=== PATIENT | male | born 1960 | race Caucasian/White ===

== ENCOUNTER 2016-12-09 15:50 | Emergency (ER) | payer OTHER ==
--- NOTE | 2016-12-09 16:58 | ED NURSING NOTES ---
Clinical Report - Nurses [facility] [address] [place] [address] 12/09/2016 15:51 Patient: CARLA MARTINEZ TRIAGE Acuity: LEVEL 3. Chief Complaint: HEADACHE. Alert. No acute distress. SEPSIS SCREEN: Sepsis Screen. Negative (no infection suspected/documented). PAYAL COMA SCORE: [place] Coma Scale: 15- eyes open spontaneously (4); best verbal response- oriented x 4 (5); best motor response- obeys commands (6). --15:49 Marianne Carroll R.N. 15:44 12/09/16. BP: 134/89. HR: 80. RR: 16. O2 saturation: 98%. Temp: 97.8 F (oral). Pain level now: 0/10. --15:49 Marianne Carroll R.N. Weight: 95.2 kg stated. Height/Length: 73 inches Per Patient. BMI: 27.7. --15:47 Marianne Carroll R.N. Medications None. --15:46 Marianne Carroll R.N. Medication/allergy information source: the patient. --15:49 Marianne Carroll R.N. Allergies Xanax. --15:47 Marianne Carroll R.N. [place]. --15:47 Marianne Carroll R.N. History Arrived by EMS. Historian: patient. Unaccompanied. Primary physician (Norma Diamond). This started 1 weeks ago. 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 SOCIAL HX: Never smoker. History of occasional drug use: marijuana. No alcohol use. FALL RISK ASSESSMENT: Fall risk assessment completed. No fall risk identified. NUTRITIONAL RISK ASSESSMENT: The nutritional risk assessment revealed no deficiencies. FUNCTIONAL ASSESSMENT: Functional assessment: no impairments noted. LEARNING NEEDS ASSESSMENT: The learning needs assessment revealed no barriers. SKIN INTEGRITY ASSESSMENT: Skin integrity risk assessment completed. No skin integrity risk identified. --15:49 Marianne Carroll R.N. PROBLEMS: Depression. Bipolar Disorder. Anxiety Reaction. --15:47 Marianne Carroll R.N. Assessment GENERAL / NEURO / PSYCH: Alert. Oriented X 4. Appears in no acute distress. Patient appears calm and cooperative. RESPIRATORY: Respirations not labored. CVS: Capillary refill less than 2 seconds. GI / : Abdomen soft and nontender. SKIN: Mucous membranes are pink. Skin is warm and dry. --15:49 Marianne Carroll R.N. Interventions ID band on patient. To treatment room. --15:49 Marianne Carroll R.N. PHYSICAL ASSESSMENT 15:49 12/09/16. Ambulatory to room. GENERAL / NEURO / PSYCH: Alert. Oriented X 4. Appears in no acute distress. Speech within normal limits. HEENT: No facial asymmetry noted. Pupils equal, round and reactive to light. RESPIRATORY: Respirations not labored. CVS: Capillary refill less than 2 seconds. GI / : Abdomen soft and nontender. SKIN: Skin is warm and dry. --15:49 Marianne Carroll R.N. NURSING PROGRESS NOTES 15:50 12/09/16. Patient gowned. Two patient identifiers checked. Call light placed in reach. Side rails up x 1. Bed placed in lowest position. Brakes of bed on. Patient ready for evaluation- chart flagged. --15:50 Marianne Carroll R.N. DISPOSITION / DISCHARGE 17:07 12/09/16. Departure time: 17:05 Dec 09 2016. Condition at departure: improved and stable. No learning barriers present. Discharge instructions provided and reviewed with the patient. Reviewed medication(s) side effects and precautions information. Prescription(s) given to the patient. Patient verbalized understanding. Written instructions provided in Syriac. The patient was discharged by the physician. He was discharged home. He left the Emergency Department ambulatory and via taxi. --17:07 Marianne Carroll R.N. Locked/Released at 12/09/2016 17:08 by Marianne Carroll R.N.
--- NOTE | 2016-12-09 16:58 | ED NURSING NOTES ---
Clinical Report - Nurses [facility] [address] [place] [address] 12/09/2016 15:51 Patient: CARLA MARTINEZ TRIAGE Acuity: LEVEL 3. Chief Complaint: HEADACHE. Alert. No acute distress. SEPSIS SCREEN: Sepsis Screen. Negative (no infection suspected/documented). PAYAL COMA SCORE: [place] Coma Scale: 15- eyes open spontaneously (4); best verbal response- oriented x 4 (5); best motor response- obeys commands (6). --15:49 Marianne Carroll R.N. 15:44 12/09/16. BP: 134/89. HR: 80. RR: 16. O2 saturation: 98%. Temp: 97.8 F (oral). Pain level now: 0/10. --15:49 Marianne Carroll R.N. Weight: 95.2 kg stated. Height/Length: 73 inches Per Patient. BMI: 27.7. --15:47 Marianne Carroll R.N. Medications None. --15:46 Marianne Carroll R.N. Medication/allergy information source: the patient. --15:49 Marianne Carroll R.N. Allergies Xanax. --15:47 Marianne Carroll R.N. [place]. --15:47 Marianne Carroll R.N. History Arrived by EMS. Historian: patient. Unaccompanied. Primary physician (Norma Diamond). This started 1 weeks ago. 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 SOCIAL HX: Never smoker. History of occasional drug use: marijuana. No alcohol use. FALL RISK ASSESSMENT: Fall risk assessment completed. No fall risk identified. NUTRITIONAL RISK ASSESSMENT: The nutritional risk assessment revealed no deficiencies. FUNCTIONAL ASSESSMENT: Functional assessment: no impairments noted. LEARNING NEEDS ASSESSMENT: The learning needs assessment revealed no barriers. SKIN INTEGRITY ASSESSMENT: Skin integrity risk assessment completed. No skin integrity risk identified. --15:49 Marianne Carroll R.N. PROBLEMS: Depression. Bipolar Disorder. Anxiety Reaction. --15:47 Marianne Carroll R.N. Assessment GENERAL / NEURO / PSYCH: Alert. Oriented X 4. Appears in no acute distress. Patient appears calm and cooperative. RESPIRATORY: Respirations not labored. CVS: Capillary refill less than 2 seconds. GI / : Abdomen soft and nontender. SKIN: Mucous membranes are pink. Skin is warm and dry. --15:49 Marianne Carroll R.N. Interventions ID band on patient. To treatment room. --15:49 Marianne Carroll R.N. PHYSICAL ASSESSMENT 15:49 12/09/16. Ambulatory to room. GENERAL / NEURO / PSYCH: Alert. Oriented X 4. Appears in no acute distress. Speech within normal limits. HEENT: No facial asymmetry noted. Pupils equal, round and reactive to light. RESPIRATORY: Respirations not labored. CVS: Capillary refill less than 2 seconds. GI / : Abdomen soft and nontender. SKIN: Skin is warm and dry. --15:49 Marianne Carroll R.N. NURSING PROGRESS NOTES 15:50 12/09/16. Patient gowned. Two patient identifiers checked. Call light placed in reach. Side rails up x 1. Bed placed in lowest position. Brakes of bed on. Patient ready for evaluation- chart flagged. --15:50 Marianne Carroll R.N. DISPOSITION / DISCHARGE 17:07 12/09/16. Departure time: 17:05 Dec 09 2016. Condition at departure: improved and stable. No learning barriers present. Discharge instructions provided and reviewed with the patient. Reviewed medication(s) side effects and precautions information. Prescription(s) given to the patient. Patient verbalized understanding. Written instructions provided in [place]. The patient was discharged by the physician. He was discharged home. He left the Emergency Department ambulatory and via taxi. --17:07 Marianne Carroll R.N. Locked/Released at 12/09/2016 17:08 by Marianne Carroll R.N.
--- NOTE | 2016-12-09 16:58 | ED ORDER SUMMARY ---
..... Patient: CARLA MARTINEZ OrderSheet [facility] VisitID: [id number] [address] [place] [address] 55y, M Registration Date/Time: 12/09/2016 ORDER SHEET Weight: 95.2 kg (stated) Allergies: Xanax, [place] GENERAL ORDERS: ESR Urgent (16:05 12/09/2016 Valeriano PIERRE) (Ack 16:[address] [facility]) (16:47 Nir Markham) MEDICATION ORDERS: IV FLUIDS: ORDER SHEET NOTES: [Electronically signed by Marianne Carroll R.N. (17:08 12/09/2016)] [Electronically signed by Arias Kaye DO (14:32 12/10/2016)] [Electronically locked/signed by Marianne Carroll R.N. (17:08 12/09/2016)]
--- NOTE | 2016-12-09 16:58 | ED ORDER SUMMARY ---
..... Patient: CARLA MARTINEZ OrderSheet [facility] VisitID: [id number] [address] [place] [address] 55y, M Registration Date/Time: 12/09/2016 ORDER SHEET Weight: 95.2 kg (stated) Allergies: Xanax, [place] GENERAL ORDERS: ESR Urgent (16:05 12/09/2016 Valeriano PIERRE) (Ack 16:06 [facility]) (16:47 Nir Markham) MEDICATION ORDERS: IV FLUIDS: ORDER SHEET NOTES: [Electronically signed by Marianne Carroll R.N. (17:08 12/09/2016)] [Electronically signed by Arias Kaye DO (14:32 12/10/2016)] [Electronically locked/signed by Marianne Carroll R.N. (17:08 12/09/2016)]
--- NOTE | 2016-12-09 16:58 | ED CLINICAL REPORT ---
Clinical Report - Physicians/Mid Levels [facility] [address] [place] [address] 12/09/2016 15:51 Patient: CARLA MARTINEZ Time Seen: 15:57. Arrived- By ambulance. Historian- patient and EMS personnel. HISTORY OF PRESENT ILLNESS Chief Complaint: FACIAL PAIN. This started about 2 weeks ago and is now gone. It was abrupt in onset and has been intermittent. Onset during light activity. It is described as "pain" and sharp. Located in the right temporal region and left mandibular region. No neck pain. At its maximum, severity described as moderate. When seen in the E.D., it was gone. Modifying factors: relieved by nothing. Not worsened by anything. No preceding symptoms, blurred vision, photophobia, associated nausea or numbness. No weakness or vomiting. Similar symptoms previously: Recent medical care: The patient was seen recently in a clinic. Seen for other problems. ( saw dental walk-in clinic about 2 weeks ago for right lower dental pain - has mild pain in this area persisting). REVIEW OF SYSTEMS No fever, sinus pressure, ear pain, sore throat or chest pain. No difficulty breathing, cough, abdominal pain, diarrhea or pain with urination. No skin rash, enlarged lymph nodes or back pain. All systems otherwise negative, except as recorded above. PAST HISTORY Primary physician (Norma Diamond). Anxiety. Bipolar disorder. Depression. Medications: None. Allergies: [place]. Xanax. SOCIAL HISTORY Never smoker. History of drug use: marijuana. No alcohol use. He is homeless. ADDITIONAL NOTES The nursing notes have been reviewed. PHYSICAL EXAM Vital Signs: 12/09/2016 15:44 BP: 134/89. HR: 80. RR: 16. O2 saturation: 98%. Temp: 97.8 F. Pain level now: 0/10. Appearance: Alert. Anxious. Head: Temporal artery tenderness. No tenderness to palpation/percussion over the sinuses. Eyes: Pupils equal, round and reactive to light. Eyes normal inspection. No photophobia or shallow angle. ENT: Airway intact. Pharynx normal and normal. Moist mucous membranes. Uvula midline. Voice normal. No nasal discharge, pharyngeal erythema or tonsillar exudate. no dental tenderness; no gingival swelling or fluctuance. Neck: Normal inspection. Neck supple. No meningeal signs or carotid bruit. CVS: Normal heart rate and rhythm. Heart sounds normal. Pulses normal. Respiratory: No respiratory distress. Breath sounds normal. Abdomen: Soft and nontender. Back: Normal inspection. Skin: Skin warm and dry. Normal skin color. No rash. Normal skin turgor. Extremities: Extremities exhibit normal ROM. No lower extremity edema. Neuro: Oriented X 3. Alert. Mood/affect normal. Speech normal. Cranial nerves normal (as tested). No cerebellar findings. No motor deficit. No sensory deficit. Reflexes normal. Reflex exam: right biceps 2+, left biceps 2+, right patellar 2+, left patellar 2+, right Achilles 2+ and left Achilles 2+. LABS, X-RAYS, AND EKG Laboratory Tests: ESR: (MAGAN: 12/09/2016 16:15) ( MsgRcvd 12/09/2016 16:45) Final results Test Result Flag Units (Reference) SED RATE WESTERGREN 3 mm/hr (0-20) . Pulse Oximetry: 12/09/2016 15:44 O2 saturation: 98%. (FIO2 - room air). Interpretation: normal. PROGRESS AND PROCEDURES Course of Care: Episodes of fleeting (seconds), sharp ("electric") right temporal area pain and lower right dental pain. Not c/w meningitis or SAH / intracerebral hemorrhage. CT or LP not clinically indicated. Pt will need close out pt follow up. Pt with underlying diagnosis of chronic anxiety d/o and bipolar d/o. ESR low normal - not c/w giant cell arteritis. Consider trigeminal neuralgia. Patient/family counseled. Old ED records reviewed. Disposition: Discharged. Condition: stable and improved. CLINICAL IMPRESSION Acute nontraumatic pain in the face. Chronic substance abuse- marijuana with anxiety. Possible trigeminal neuralgia. Doubt temporal arteritis Clinical picture does not suggest meningitis, encephalitis or nontraumatic subarachnoid hemorrhagee. INSTRUCTIONS No alcohol until released. Warnings: Further evaluation is necessary in order to conduct further tests. It is very important to follow up with a physician. GENERAL WARNINGS: Return or contact your physician immediately if your condition worsens or changes unexpectedly, if not improving as expected, or if other problems arise. Prescription Medications: Ibuprofen 600mg tablets: take 1 tablet orally every 8 hours as needed for pain. Dispense thirty (30). No refills. OTC Medications: Acetaminophen (available over the counter): take according to label instructions. Follow-up: Follow up with your doctor Lobo in about two days. (Electronically signed by Arias Kaye DO 12/10/2016 14:32)
--- NOTE | 2016-12-10 14:33 | ED MED RECONCILIATION SUMMARY ---
Patient: CARLA MARTINEZ Medication Reconciliation Report [facility] VisitID: [id number] [address] [place] [address] 55y, M Registration Date/Time: 12/09/2016 Weight: 95.2 kg Height/Length: 73 in. BMI: 27.7 ALLERGIES: [place], Xanax The patient's Home Medications are listed below: NONE. The source(s) of the original Home Medication information: patient The following Medications were given to the patient in the Emergency Department: None. The following Medications were prescribed to the patient: Acetaminophen (available over the counter): take according to label instructions. -- Arias Kaye DO Ibuprofen 600mg tablets: take 1 tablet orally every 8 hours as needed for pain. Dispense thirty (30). No refills. -- Arias Kaye DO
--- NOTE | 2016-12-10 14:33 | ED MAR SUMMARY ---
..... Medication Administration Record [facility] [address] [place], [place] [id number] Patient: CARLA MARTINEZ Visit ID: [id number] 55y, M Weight: 95.2 kg Height/Length: 73 in BMI: 27.7 ALLERGIES: [place], Xanax
--- NOTE | 2016-12-10 14:33 | ED DISCHARGE INSTRUCTIONS ---
Patient: CARLA MARTINEZ General Instructions [facility] VisitID: [id number] [place] [address] 55y, M Registration Date/Time: 12/09/2016 Acute nontraumatic pain in the face. Chronic substance abuse- marijuana with anxiety. INSTRUCTIONS No alcohol until released. Warnings: Further evaluation is necessary in order to conduct further tests. It is very important to follow up with a physician. GENERAL WARNINGS: Return or contact your physician immediately if your condition worsens or changes unexpectedly, if not improving as expected, or if other problems arise. Prescription Medications: Ibuprofen 600mg tablets: take 1 tablet orally every 8 hours as needed for pain. Dispense thirty (30). No refills. OTC Medications: Acetaminophen (available over the counter): take according to label instructions. Follow-up: Follow up with your doctor [place] in about two days. ADDITIONAL INFORMATION Pain, Uncertain Cause [Acute] Pain is the bodys way of calling attention to a problem. Pain can be caused by many conditions - some minor, some serious. In your case, we were not able to find the exact cause for your pain. However, at this time there is no sign of any serious or life-threatening illness causing your pain. Sometimes more tests will be needed to determine the cause. Other times, just allowing more time to pass will either make it clear what the problem is, or the pain will go away by itself. Home Care: You may use acetaminophen (Tylenol) or ibuprofen (Motrin, Advil) to control pain, unless another medicine was prescribed. [NOTE: If you have chronic liver or kidney disease or ever had a stomach ulcer or GI bleeding, talk with your doctor before using these medicines.] Follow Up with your doctor or as advised by our staff. Get Prompt Medical Attention if any of the following occur: Changes in the pattern of your pain Appearance of new symptoms Fever of 100.4F (38C) or higher, or as directed by your healthcare provider Temporal Arteritis You have temporal arteritis (also called Giant Cell Arteritis. This is an inflammation of the temporal artery, which sends blood to your eye. This artery is located in the scalp area just above each ear. When the arteries are inflamed, the vessel narrows and blood flow slows down. A clot may also form inside the artery, stopping all blood flow. Reduced or blocked blood flow in this artery can cause blindness in the affected side. In rare cases stroke may occur. The cause of temporal arteritis is not known. Symptoms of temporal arteritis include headache, tenderness of the temples, jaw pain when chewing, muscle aching, and fatigue. Steroids (prednisone) are used to treat this condition. They reduce inflammation in the arteries. When treatment starts, most people begin to feel better in a few days. Most people do recover from this condition, but it may require continued treatment for 1 or 2 years. intermediate steroid treatment can cause various important side effects. These include osteoporosis, high blood pressure and diabetes. Talk to your doctor about this and ways to minimize these. Home Care Take your medicine as directed by your doctor. The following suggestions will help reduce side effects from long-term steroid use. Nutrition: Eat plenty of fresh fruits, vegetables, and whole grains. Focus on lean sources of protein. Limit the use of salt, sugar, and alcohol. Be sure to get enough calcium and vitamin D from low-fat dairy foods. If you are not able to eat dairy, you can use lactose-free dairy products or find other food sources that contain calcium such as kale, broccoli, white beans, green beans, Lopez beans, salmon, soybeans, tofu, or fortified juices. Or you can take daily calcium supplements. Ask your doctor how much calcium you should take each day. Exercise: Get regular aerobic exercise, up to 30 minutes on most days. Exercise can help prevent bone loss, heart disease, and diabetes. It also relieves stress and can improve your mood and your overall quality of life. If you dont already exercise regularly, ask your doctor for help setting up a program. Follow Up with your doctor or as advised by our staff. For more information, contact: National [place] of Arthritisand Musculoskeletal and Skin Diseases www.niams.nih.gov The Arthritis Foundation. www.arthritis.org Get Prompt Medical AttentionIf Any Of The Following Occur: Your symptoms get worse Numbness or weakness of the face, one arm, or one leg Slurred speech, confusion, trouble speaking or walking Severe headache Fainting spell, dizziness or seizure Chest, arm, neck, or upper back pain Sudden loss or change in vision Marijuana Abuse Marijuana is the most widely used illegal drug in the [place]. It is called by various names such as pot, weed, blunts, grass, reefer, ganja, hash, hashish. It is usually smoked but can be mixed with foods or brewed as a tea. It is sometimes sold with PCP (Oumar Dust) or amphetamine mixed in it. These drugs can cause other harmful side effects. Marijuana can cause the following effects: Changes in mood (stimulated, happy, drowsy, depressed, paranoid) Hallucinations Increased heart rate and blood pressure Increased appetite Time distortion, difficulty concentrating, impaired memory Lung damage (similar to cigarettes with chronic cough, wheezing, frequent colds and bronchitis) You can become psychologically dependent on marijuana. That means the craving to use the drug is emotional or psychological rather than due to physical withdrawal. Is Marijuana Running Your Life? Here are some of the signs: Relying on marijuana to feel good, forget problems, deal with stress or to relax Wanting to be alone most of the time or only with others who use drugs Losing interest in things that used to be important Changes in school or job performance or attendance Spending a lot of time thinking about how to get marijuana Stealing or selling your things so you can buy marijuana Unable to stop using even though you may want to quit Increasing anxiety, anger,or depression Sleeping too much, changes in eating habits (weight loss or gain) Needing to use more to get the same effect Home Care Once you have become addicted to any drug, quitting is hard to do. Most people find they can't quit without help. So, dont try to do this alone. Talk to someone you trust who can support you. Seek professional help. Avoid people and places where drugs are used. That only increases the temptation to use. Follow Up with your doctor or as advised by our staff. For more information or a referral to a treatment center in your area, contact: Your local mental health center or the National Alcohol and Substance Abuse Information Center (794)-424-4850 www.addictioncareoptions.com National [place] on Alcoholism and Drug Dependence 707-291-DJNK www.ncadd.org Marijuana Anonymous 414-083-5676 www.marijuana-anonymous.org Get Prompt Medical Attention if any of the following occur: You feel extreme depression, fear, anxiety, or anger toward yourself or others You feel out of control You feel that you may try to harm yourself or another Ibuprofen Oral tablet What is this medicine? IBUPROFEN (eye BYOO proe fen) is a non-steroidal anti-inflammatory drug (NSAID). It is used for dental pain, fever, headaches or migraines, osteoarthritis, rheumatoid arthritis, or painful monthly periods. It can also relieve minor aches and pains caused by a cold, flu, or sore throat. How should I use this medicine? Take this medicine by mouth with a glass of water. Follow the directions on the prescription label. Take this medicine with food if your stomach gets upset. Try to not lie down for at least 10 minutes after you take the medicine. Take your medicine at regular intervals. Do not take your medicine more often than directed. A special MedGuide will be given to you by the pharmacist with each prescription and refill. Be sure to read this information carefully each time. Talk to your counseling services manager regarding the use of this medicine in children. Special care may be needed. What side effects may I notice from receiving this medicine? Side effects that you should report to your doctor or health farm or ranch animal caretaker as soon as possible: allergic reactions like skin rash, itching or hives, swelling of the face, lips, or tongue black or bloody stools, blood in the urine or in vomit breathing problems changes in vision chest pain general ill feeling or flu-like symptoms nausea or vomiting redness, blistering, peeling or loosening of the skin, including inside the mouth slurred speech or weakness on one side of the body stomach pain unexplained weight gain or swelling unusually weak or tired yellowing of eyes or skin Side effects that usually do not require medical attention (report to your doctor or health farm or ranch animal caretaker if they continue or are bothersome): constipation or diarrhea dizziness gas or heartburn stomach upset What may interact with this medicine? Do not take this medicine with any of the following medications: cidofovir ketorolac methotrexate pemetrexed This medicine may also interact with the following medications: alcohol aspirin diuretics lithium other drugs for inflammation like prednisone warfarin What if I miss a dose? If you miss a dose, take it as soon as you can. If it is almost time for your next dose, take only that dose. Do not take double or extra doses. Where should I keep my medicine? Keep out of the reach of children. Store at room temperature between 15 and 30 degrees C (59 and 86 degrees F). Keep container tightly closed. Throw away any unused medicine after the expiration date. What should I tell my health care provider before I take this medicine? They need to know if you have any of these conditions: asthma cigarette smoker drink more than 3 alcohol containing drinks a day heart disease or circulation problems such as heart failure or leg edema (fluid retention) high blood pressure kidney disease liver disease stomach bleeding or ulcers an unusual or allergic reaction to ibuprofen, aspirin, other NSAIDS, other medicines, foods, dyes, or preservatives or trying to get breast-feeding What should I watch for while using this medicine? Tell your doctor or healthcare professional if your symptoms do not start to get better or if they get worse. This medicine does not prevent heart attack or stroke. In fact, this medicine may increase the chance of a heart attack or stroke. The chance may increase with longer use of this medicine and in people who have heart disease. If you take aspirin to prevent heart attack or stroke, talk with your doctor or health farm or ranch animal caretaker. Do not take other medicines that contain aspirin, ibuprofen, or naproxen with this medicine. Side effects such as stomach upset, nausea, or ulcers may be more likely to occur. Many medicines available without a prescription should not be taken with this medicine. This medicine can cause ulcers and bleeding in the stomach and intestines at any time during treatment. Ulcers and bleeding can happen without warning symptoms and can cause . To reduce your risk, do not smoke cigarettes or drink alcohol while you are taking this medicine. You may get drowsy or dizzy. Do not drive, use machinery, or do anything that needs mental alertness until you know how this medicine affects you. Do not stand or sit up quickly, especially if you are an older patient. This reduces the risk of dizzy or fainting spells. This medicine can cause you to bleed more easily. Try to avoid damage to your teeth and gums when you brush or floss your teeth. Acetaminophen Oral tablet What is this medicine? ACETAMINOPHEN (a set a WESTON pearl fen) is a pain reliever. It is used to treat mild pain and fever. How should I use this medicine? Take this medicine by mouth with a glass of water. Follow the directions on the package or prescription label. Take your medicine at regular intervals. Do not take your medicine more often than directed. Talk to your counseling services manager regarding the use of this medicine in children. While this drug may be prescribed for children as young as 6 years of age for selected conditions, precautions do apply. What side effects may I notice from receiving this medicine? Side effects that you should report to your doctor or health farm or ranch animal caretaker as soon as possible: allergic reactions like skin rash, itching or hives, swelling of the face, lips, or tongue breathing problems fever or sore throat redness, blistering, peeling or loosening of the skin, including inside the mouth trouble passing urine or change in the amount of urine unusual bleeding or bruising unusually weak or tired yellowing of the eyes or skin Side effects that usually do not require medical attention (report to your doctor or health farm or ranch animal caretaker if they continue or are bothersome): headache nausea, stomach upset What may interact with this medicine? alcohol imatinib isoniazid other medicines with acetaminophen What if I miss a dose? If you miss a dose, take it as soon as you can. If it is almost time for your next dose, take only that dose. Do not take double or extra doses. Where should I keep my medicine? Keep out of reach of children. Store at room temperature between 20 and 25 degrees C (68 and 77 degrees F). Protect from moisture and heat. Throw away any unused medicine after the expiration date. What should I tell my health care provider before I take this medicine? They need to know if you have any of these conditions: if you frequently drink alcohol containing drinks liver disease an unusual or allergic reaction to acetaminophen, other medicines, foods, dyes or preservatives or trying to get breast-feeding What should I watch for while using this medicine? Tell your doctor or health farm or ranch animal caretaker if the pain lasts more than 10 days (5 days for children), if it gets worse, or if there is a new or different kind of pain. Also, check with your doctor if a fever lasts for more than 3 days. Do not take other medicines that contain acetaminophen with this medicine. Always read labels carefully. If you have questions, ask your doctor or pharmacist. If you take too much acetaminophen get medical help right away. Too much acetaminophen can be very dangerous and cause liver damage. Even if you do not have symptoms, it is important to get help right away. You have been given the following additional information: Pain, Uncertain Cause (Acute) Temporal Arteritis Marijuana Abuse Ibuprofen Oral tablet Acetaminophen Oral tablet (Electronically signed by Arias Kaye DO 12/10/2016 14:32)
--- NOTE | 2016-12-10 14:33 | ED MED RECONCILIATION SUMMARY ---
Patient: CARLA MARTINEZ Medication Reconciliation Report [facility] VisitID: [id number] [address] [place] [address] 55y, M Registration Date/Time: 12/09/2016 Weight: 95.2 kg Height/Length: 73 in. BMI: 27.7 ALLERGIES: [place], Xanax The patient's Home Medications are listed below: NONE. The source(s) of the original Home Medication information: patient The following Medications were given to the patient in the Emergency Department: None. The following Medications were prescribed to the patient: Acetaminophen (available over the counter): take according to label instructions. -- Arias Kaye DO Ibuprofen 600mg tablets: take 1 tablet orally every 8 hours as needed for pain. Dispense thirty (30). No refills. -- Arias Kaye DO
--- NOTE | 2016-12-10 14:33 | ED MAR SUMMARY ---
..... Medication Administration Record [facility] [address] [place], [place] [id number] Patient: CARLA MARTINEZ Visit ID: [id number] 55y, M Weight: 95.2 kg Height/Length: 73 in BMI: 27.7 ALLERGIES: [place], Xanax
== END 2016-12-09 17:05 | disposition home or self-care (01) ==
LOC: ED SRH 15:50
DX: R51 Headache (principal); F12.180 Cannabis abuse with cannabis-induced anxiety disorder; Z88.8 Allergy status to other drugs, medicaments and biological substances; Z59.0 Homelessness
CPT/HCPCS: 95150

== ENCOUNTER 2016-12-09 18:36 | Emergency (ER) | payer OTHER ==
--- NOTE | 2016-12-09 19:45 | ED CLINICAL REPORT ---
Clinical Report - Physicians/Mid Levels [facility] [address] [place] [address] 12/09/2016 18:36 Patient: CARLA CANALES Time Seen: 19:07; initial patient contact. Arrived- By private vehicle. Historian- patient. HISTORY OF PRESENT ILLNESS Chief Complaint: HEADACHE. This started 7 days ago; pt was seen by MD provider in the ER just an hour ago, and after looking at his paperwork, decided he needed further evaluation as he was afraid he might be having a clot or other issue in his brain, with the brief lancinating pains he has been having in his right temporal region, off/on for the past week. and is now gone (resolved upon arrival in the emergency department). No neck pain. Not located in the facial region. At its maximum, severity described as 4 / 10. When seen in the E.D., it was gone. No preceding symptoms, blurred vision or photophobia. Similar symptoms previously: Several times (7 days). Recent medical care: The patient was seen recently at this facility in the emergency department. REVIEW OF SYSTEMS No fever, muscle aches or sinus pressure. All systems otherwise negative, except as recorded above. PAST HISTORY See nurses notes. No history of chronic headaches. No history of sinus problems or head injury. Problems: Acute Pain. Substance Abuse. Depression. Bipolar Disorder. Anxiety Reaction. Ureterolithiasis. Hyperventilation. Medications: None. Allergies: [place]. Xanax. SOCIAL HISTORY Smoker- current status unknown. Alcohol use. History of drug use. FAMILY HISTORY Negative. ADDITIONAL NOTES The nursing notes have been reviewed with agreement regarding the chief complaint, HPI, ROS, PMH and patient medications and allergies. PHYSICAL EXAM Vital Signs: 12/09/2016 18:58 BP: 112/73. HR: 101. RR: 18. O2 saturation: 97%. Temp: 98 F. Pain level now: 0/10. Have been reviewed. Appearance: Alert. No acute distress. Anxious. Eyes: Pupils equal, round and reactive to light. Eyes normal inspection. (minimal tenderness to the temporal region with negative ESR.). ENT: Ears normal. Nose normal. Pharynx normal. Neck: Neck supple. CVS: Normal heart rate and rhythm. Heart sounds normal. Respiratory: No respiratory distress. Neuro: Oriented X 3. Alert. Cranial nerves normal (as tested). No cerebellar findings. No motor deficit. No sensory deficit. Reflexes normal. LABS, X-RAYS, AND EKG CT Head: Normal study. (Name: Carla Canales : 1960 MR#: [id number] Ordering Provider: KEVIN ROSENTHAL Exam(s): CT HEAD WITHOUT CONTRAST Date of Exam: 12/09/2016 __ PROCEDURE: CT HEAD WITHOUT CONTRAST INDICATION: Increasing right temporal headaches. TECHNIQUE: Noncontrast axial images with sagittal and coronal reformations. COMPARISON: None. FINDINGS: Brain and ventricles are normal. No evidence of an acute process or hemorrhage. Sinuses and mastoids are normal. IMPRESSION: 1. Negative head CT. 2. Findings discussed with YARELI Salazar at [address] scans at this facility use dose modulation, iterative reconstruction, and/or weight-based dosing when appropriate to reduce radiation dose to as low as reasonably achievable. Electronically Final signed by:Juan Ramon Martin MD 12/09/2016 8:40:20 PM). The study was independently viewed by me, interpreted by the radiologist and discussed with the radiologist. PROGRESS AND PROCEDURES Course of Care: pt had examination done by prior MD provider, just a few hours prior with ESR or 3. CT scan was ordered as he has a history of bipolar disorder, and may not be the most reliable historian, and CT was determined to be neg. pt was reassured of his neg CT. had no pain at the time of re-discharge from the ER. Patient is stable. The patient's symptoms are now gone. 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 No aura. reassurance. follow up with pcp. INSTRUCTIONS Rest. No dietary restrictions. Do not smoke. No alcohol. Warnings: GENERAL WARNINGS: Return or contact your physician immediately if your condition worsens or changes unexpectedly, if not improving as expected, or if other problems arise. Follow-up: Follow up with your doctor Sunday if not well. Follow up with a neurologist in one week if not better. Reason for referral: lancinating head pain. Understanding of the discharge instructions verbalized by patient. (Electronically signed by Kevin Rosenthal PA-C 12/09/2016 22:05) Addenda for CARLA CANALES VisitID: [id number] Date: 12/09/2016 12/09/2016 20:04 Error in room assignments. Carla was placed in room 3 and never left the ER. We have returned Carla to the ER to be seen at this time. Upon entering the room, NAD noted; Carla is wearing gloves; when asked if the gloves are hot/uncomfortable, Carla replies "I am allergic to the flu shot and since I am in the hospital I don't want to accidentally touch something with the flu shot." Carla is alert and oriented x 4. He is calm, cooperative. Carla is disshelved appearing but looks nourished. Cranial nerves II-XII tested and intact, CN I intact by report. PERRLA noted. EOMs intact. Speech coherent. I personally performed the procedure as documented. (Electronically signed by Amrit Garcia R.N. - 12/09/2016 20:04) 12/09/2016 20:26 20:[address] scan with radiolgy tech (Electronically signed by Sheron Avila Tech1 - 12/09/2016 20:26) 12/09/2016 20:27 20:27 Patient returned to room, CT complete (Electronically signed by Sheron Avila ER Tech1 - 12/09/2016 20:27) 12/09/2016 20:44 I personally performed the procedure as documented. (Electronically signed by Claudia Chan R.N. - 12/09/2016 20:44) 12/09/2016 20:45 I personally performed the procedure as documented. 2029-112/ (left arm, sitting) HR 86, RR12, 99% RA, pain 4/[address] results (Electronically signed by Claudia Chan R.N. - 12/09/2016 20:45) 12/09/2016 21:44 I personally performed the procedure as documented. Pt seen by provider at approximately 2049, given results of CT and was told that he was discharged. Pt was not found in room, outside or waiting area. Pt left without discharge paper work. (Electronically signed by Claudia Chan R.N. - 12/09/2016 21:44) 12/21/2016 15:42 I attest that I was present in the ED during the evaluation of this patient by the PA. (Electronically signed by Arias Kaye DO - 12/21/2016 15:42)
--- NOTE | 2016-12-09 19:45 | ED CLINICAL REPORT ---
Clinical Report - Physicians/Mid Levels [facility]ly [facility] [address] [place] [address] 12/09/2016 18:36 Patient: CARLA CANALES Time Seen: 19:07; initial patient contact. Arrived- By private vehicle. Historian- patient. HISTORY OF PRESENT ILLNESS Chief Complaint: HEADACHE. This started 7 days ago; pt was seen by MD provider in the ER just an hour ago, and after looking at his paperwork, decided he needed further evaluation as he was afraid he might be having a clot or other issue in his brain, with the brief lancinating pains he has been having in his right temporal region, off/on for the past week. and is now gone (resolved upon arrival in the emergency department). No neck pain. Not located in the facial region. At its maximum, severity described as 4 / 10. When seen in the E.D., it was gone. No preceding symptoms, blurred vision or photophobia. Similar symptoms previously: Several times (7 days). Recent medical care: The patient was seen recently at this facility in the emergency department. REVIEW OF SYSTEMS No fever, muscle aches or sinus pressure. All systems otherwise negative, except as recorded above. PAST HISTORY See nurses notes. No history of chronic headaches. No history of sinus problems or head injury. Problems: Acute Pain. Substance Abuse. Depression. Bipolar Disorder. Anxiety Reaction. Ureterolithiasis. Hyperventilation. Medications: None. Allergies: [place]. Xanax. SOCIAL HISTORY Smoker- current status unknown. Alcohol use. History of drug use. FAMILY HISTORY Negative. ADDITIONAL NOTES The nursing notes have been reviewed with agreement regarding the chief complaint, HPI, ROS, PMH and patient medications and allergies. PHYSICAL EXAM Vital Signs: 12/09/2016 18:58 BP: 112/73. HR: 101. RR: 18. O2 saturation: 97%. Temp: 98 F. Pain level now: 0/10. Have been reviewed. Appearance: Alert. No acute distress. Anxious. Eyes: Pupils equal, round and reactive to light. Eyes normal inspection. (minimal tenderness to the temporal region with negative ESR.). ENT: Ears normal. Nose normal. Pharynx normal. Neck: Neck supple. CVS: Normal heart rate and rhythm. Heart sounds normal. Respiratory: No respiratory distress. Neuro: Oriented X 3. Alert. Cranial nerves normal (as tested). No cerebellar findings. No motor deficit. No sensory deficit. Reflexes normal. LABS, X-RAYS, AND EKG CT Head: Normal study. (Name: Carla Canales : 1960 MR#: [id number] Ordering Provider: KEVIN ROSENTHAL Exam(s): CT HEAD WITHOUT CONTRAST Date of Exam: 12/09/2016 __ PROCEDURE: CT HEAD WITHOUT CONTRAST INDICATION: Increasing right temporal headaches. TECHNIQUE: Noncontrast axial images with sagittal and coronal reformations. COMPARISON: None. FINDINGS: Brain and ventricles are normal. No evidence of an acute process or hemorrhage. Sinuses and mastoids are normal. IMPRESSION: 1. Negative head CT. 2. Findings discussed with YARELI Salazar at [address] scans at this facility use dose modulation, iterative reconstruction, and/or weight-based dosing when appropriate to reduce radiation dose to as low as reasonably achievable. Electronically Final signed by:Juan Ramon Martin MD 12/09/2016 8:40:20 PM). The study was independently viewed by me, interpreted by the radiologist and discussed with the radiologist. PROGRESS AND PROCEDURES Course of Care: pt had examination done by prior MD provider, just a few hours prior with ESR or 3. CT scan was ordered as he has a history of bipolar disorder, and may not be the most reliable historian, and CT was determined to be neg. pt was reassured of his neg CT. had no pain at the time of re-discharge from the ER. Patient is stable. The patient's symptoms are now gone. 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 No aura. reassurance. follow up with pcp. INSTRUCTIONS Rest. No dietary restrictions. Do not smoke. No alcohol. Warnings: GENERAL WARNINGS: Return or contact your physician immediately if your condition worsens or changes unexpectedly, if not improving as expected, or if other problems arise. Follow-up: Follow up with your doctor Sunday if not well. Follow up with a neurologist in one week if not better. Reason for referral: lancinating head pain. Understanding of the discharge instructions verbalized by patient. (Electronically signed by Kevin Rosenthal PA-C 12/09/2016 22:05) Addenda for CARLA CANALES VisitID: [id number] Date: 12/09/2016 12/09/2016 20:04 Error in room assignments. Carla was placed in room 3 and never left the ER. We have returned Carla to the ER to be seen at this time. Upon entering the room, NAD noted; Carla is wearing gloves; when asked if the gloves are hot/uncomfortable, Carla replies "I am allergic to the flu shot and since I am in the hospital I don't want to accidentally touch something with the flu shot." Carla is alert and oriented x 4. He is calm, cooperative. Carla is disshelved appearing but looks nourished. Cranial nerves II-XII tested and intact, CN I intact by report. PERRLA noted. EOMs intact. Speech coherent. I personally performed the procedure as documented. (Electronically signed by Amrit Garcia R.N. - 12/09/2016 20:04) 12/09/2016 20:26 20:[address] scan with radiolgy tech (Electronically signed by Sheron Avila Tech1 - 12/09/2016 20:26) 12/09/2016 20:27 20:27 Patient returned to room, CT complete (Electronically signed by Sheron Avila ER Tech1 - 12/09/2016 20:27) 12/09/2016 20:44 I personally performed the procedure as documented. (Electronically signed by Claudia Chan R.N. - 12/09/2016 20:44) 12/09/2016 20:45 I personally performed the procedure as documented. 2029-112/ (left arm, sitting) HR 86, RR12, 99% RA, pain 4/[address] results (Electronically signed by Claudia Chan R.N. - 12/09/2016 20:45) 12/09/2016 21:44 I personally performed the procedure as documented. Pt seen by provider at approximately 2049, given results of CT and was told that he was discharged. Pt was not found in room, outside or waiting area. Pt left without discharge paper work. (Electronically signed by Claudia Chan R.N. - 12/09/2016 21:44) 12/21/2016 15:42 I attest that I was present in the ED during the evaluation of this patient by the PA. (Electronically signed by Arias Kaye DO - 12/21/2016 15:42)
--- NOTE | 2016-12-09 19:45 | ED NURSING NOTES ---
Clinical Report - Nurses [facility] [address] [place] [address] 12/09/2016 18:36 Patient: CARLA MARTINEZ TRIAGE Triage time 1858 PM. Acuity: LEVEL 5. Chief Complaint: (Headache). Alert. No acute distress. PAYAL COMA SCORE: [place] Coma Scale: 15- eyes open spontaneously (4); best verbal response- oriented x 4 (5); best motor response- obeys commands (6). --19:03 Claudia Chan R.N. 18:58 12/09/16. BP: 112/73 (regular adult cuff) taken on the left arm, via an automated monitor, while sitting. HR: 101. RR: 18. O2 saturation: 97% on room air. Temp: 98 F (oral). Pain level now: 0/10. --19:03 Claudia Chan R.N. Weight: 95.2 kg stated. Height/Length: 73 inches Per Patient. BMI: 27.7. --18:58 Claudia Chan R.N. Medications None. --19:00 Claudia Cahn R.N. Allergies [place]. Xanax. --19:00 Claudia Chan R.N. Medication/allergy information source: the patient. --19:03 Claudia Chan R.N. History Arrived by private vehicle. Historian: patient. ( Pt returning again to ED due to concerns of H/A, pt states would like imaging done and is concern about his discharge instructions and a possible clot . Pt states his H/A comes and goes mostly on the right temporal side.). Onset. (1 weeks). No fever, cough, difficulty breathing or skin rash. Denies muscle aches. 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 PAST MEDICAL HX: Immunizations: status is unknown. SOCIAL HX: Former smoker. History of drug use: marijuana. Recently used drugs yesterday. No alcohol use. ABUSE ASSESSMENT: No report of abuse. SELF HARM ASSESSMENT: A self harm assessment was performed. The patient answered "no" to the question "Do you have thoughts of harming or killing yourself?" and "Have you recently had thoughts about harming or killing others?". FALL RISK ASSESSMENT: Fall risk assessment completed. No fall risk identified. NUTRITIONAL RISK ASSESSMENT: The nutritional risk assessment revealed no deficiencies. FUNCTIONAL ASSESSMENT: Functional assessment: no impairments noted. LEARNING NEEDS ASSESSMENT: The learning needs assessment revealed no barriers. SKIN INTEGRITY ASSESSMENT: Skin integrity risk assessment completed. No skin integrity risk identified. --19:03 Claudia Chan R.N. PROBLEMS: Acute Pain. Substance Abuse. Depression. Bipolar Disorder. Anxiety Reaction. Ureterolithiasis. Hyperventilation. --19:00 Claudia Chan R.N. Trigeminal Neuralgia [RuleOut]. Temporal Arteritis [RuleOut]. --19:00 Claudia Chan R.N. ADDITIONAL SURGERIES: Moles removed. --19:00 Claudia Chan R.N. Interventions ID band on patient. --19:03 Claudia Chan R.N. PHYSICAL ASSESSMENT GENERAL / NEURO / PSYCH: Alert. Oriented X 4. Appears in no acute distress. Appears anxious. Pupillary exam: Right pupil 2mm, round and briskly reactive to light directly. Left pupil: 2mm, round and briskly reactive. HEENT: Pupils equal, round and reactive to light. Mucous membranes are pink. RESPIRATORY: Respirations not labored. CVS: Capillary refill less than 2 seconds. GI / : Abdomen soft and nontender and normal bowel sounds. SKIN: Skin intact. Skin is warm. Normal skin turgor. --19:03 Claudai Chan R.N. NURSING PROGRESS NOTES The initial plan of care for this patient has been created This plan of care was discussed with the patient. Patient refused to place gown on. Reassurance given. Call light placed in reach. Side rails up x 1. Bed placed in lowest position. Brakes of bed on. --19:04 Claudia Chan R.N. DISPOSITION / DISCHARGE Patient paged once. --19:24 Amrit Garcia R.N. Departure time: 19:44. The patient left the Emergency Department without being seen by a physician. The patient appears to be in no acute distress. Patient paged with no response. Notified the ED physician and charge nurse of patient departure. The patient left the Emergency Department ambulatory. --19:44 Amrit Garcia R.N. Locked/Released at 12/09/2016 19:44 by Amrit Garcia R.N.
--- NOTE | 2016-12-09 19:45 | ED NURSING NOTES ---
Clinical Report - Nurses [facility] [address] [place] [address] 12/09/2016 18:36 Patient: CARLA MARTINEZ TRIAGE Triage time 1858 PM. Acuity: LEVEL 5. Chief Complaint: (Headache). Alert. No acute distress. PAYAL COMA SCORE: [place] Com[place] Scale: 15- eyes open spontaneously (4); best verbal response- oriented x 4 (5); best motor response- obeys commands (6). --19:03 Claudia Chan R.N. 18:58 12/09/16. BP: 112/73 (regular adult cuff) taken on the left arm, via an automated monitor, while sitting. HR: 101. RR: 18. O2 saturation: 97% on room air. Temp: 98 F (oral). Pain level now: 0/10. --19:03 Claudia Chan R.N. Weight: 95.2 kg stated. Height/Length: 73 inches Per Patient. BMI: 27.7. --18:58 Claudia Chan R.N. Medications None. --19:00 Claudia Chan R.N. Allergies [place]. Xanax. --19:00 Claudia Chan R.N. Medication/allergy information source: the patient. --19:03 Claudia Chan R.N. History Arrived by private vehicle. Historian: patient. ( Pt returning again to ED due to concerns of H/A, pt states would like imaging done and is concern about his discharge instructions and a possible clot . Pt states his H/A comes and goes mostly on the right temporal side.). Onset. (1 weeks). No fever, cough, difficulty breathing or skin rash. Denies muscle aches. 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 PAST MEDICAL HX: Immunizations: status is unknown. SOCIAL HX: Former smoker. History of drug use: marijuana. Recently used drugs yesterday. No alcohol use. ABUSE ASSESSMENT: No report of abuse. SELF HARM ASSESSMENT: A self harm assessment was performed. The patient answered "no" to the question "Do you have thoughts of harming or killing yourself?" and "Have you recently had thoughts about harming or killing others?". FALL RISK ASSESSMENT: Fall risk assessment completed. No fall risk identified. NUTRITIONAL RISK ASSESSMENT: The nutritional risk assessment revealed no deficiencies. FUNCTIONAL ASSESSMENT: Functional assessment: no impairments noted. LEARNING NEEDS ASSESSMENT: The learning needs assessment revealed no barriers. SKIN INTEGRITY ASSESSMENT: Skin integrity risk assessment completed. No skin integrity risk identified. --19:03 Claudia Chan R.N. PROBLEMS: Acute Pain. Substance Abuse. Depression. Bipolar Disorder. Anxiety Reaction. Ureterolithiasis. Hyperventilation. --19:00 Claudia Chan R.N. Trigeminal Neuralgia [RuleOut]. Temporal Arteritis [RuleOut]. --19:00 Claudia Chan R.N. ADDITIONAL SURGERIES: Moles removed. --19:00 Claudia Chan R.N. Interventions ID band on patient. --19:03 Claudia Chan R.N. PHYSICAL ASSESSMENT GENERAL / NEURO / PSYCH: Alert. Oriented X 4. Appears in no acute distress. Appears anxious. Pupillary exam: Right pupil 2mm, round and briskly reactive to light directly. Left pupil: 2mm, round and briskly reactive. HEENT: Pupils equal, round and reactive to light. Mucous membranes are pink. RESPIRATORY: Respirations not labored. CVS: Capillary refill less than 2 seconds. GI / : Abdomen soft and nontender and normal bowel sounds. SKIN: Skin intact. Skin is warm. Normal skin turgor. --19:03 Claudia Chan R.N. NURSING PROGRESS NOTES The initial plan of care for this patient has been created This plan of care was discussed with the patient. Patient refused to place gown on. Reassurance given. Call light placed in reach. Side rails up x 1. Bed placed in lowest position. Brakes of bed on. --19:04 Claudia Chan R.N. DISPOSITION / DISCHARGE Patient paged once. --19:24 Amrit Garcia R.N. Departure time: 19:44. The patient left the Emergency Department without being seen by a physician. The patient appears to be in no acute distress. Patient paged with no response. Notified the ED physician and charge nurse of patient departure. The patient left the Emergency Department ambulatory. --19:44 Amrit Garcia R.N. Locked/Released at 12/09/2016 19:44 by Amrit Garcia R.N.
--- NOTE | 2016-12-09 20:21 | ED ORDER SUMMARY ---
..... Patient: CARLA MARTINEZ OrderSheet [facility] VisitID: [id number] [address] [place] [address] 55y, M Registration Date/Time: 12/09/2016 ORDER SHEET Weight: 95.2 kg (stated) Allergies: [place], Xanax GENERAL ORDERS: CT Head wo Cont (lancinating pain right presybeterian) Urgent (20:19 12/09/2016 Jean-Paul AUGUSTE) (Ack 20:21 AMcQuoid ER Tech1) (20:27 AMcQuoid ER Tech1) MEDICATION ORDERS: IV FLUIDS: ORDER SHEET NOTES: [Electronically signed by Lacy Mcgrath PA-C (22:05 12/09/2016)] [Electronically locked/signed by Dixie Gonzales R.N. (12:03 01/03/2017)]
--- NOTE | 2016-12-09 20:21 | ED ORDER SUMMARY ---
..... Patient: CARLA MARTINEZ OrderSheet [facility] VisitID: [id number] [address] [place] [address] 55y, M Registration Date/Time: 12/09/2016 ORDER SHEET Weight: 95.2 kg (stated) Allergies: [place], Xanax GENERAL ORDERS: CT Head wo Cont (lancinating pain right jainism) Urgent (20:19 12/09/2016 Jean-Paul AUGUSTE) (Ack 20:21 AMcQuoid ER Tech1) (20:27 AMcQuoid ER Tech1) MEDICATION ORDERS: IV FLUIDS: ORDER SHEET NOTES: [Electronically signed by Lacy Mcgrath PA-C (22:05 12/09/2016)] [Electronically locked/signed by Dixie Gonzales R.N. (12:03 01/03/2017)]
--- NOTE | 2016-12-09 20:42 | DIAGNOSTIC IMAGING REPORT ---
PROCEDURE: CT HEAD WITHOUT CONTRAST INDICATION: Increasing right temporal headaches. TECHNIQUE: Noncontrast axial images with sagittal and coronal reformations. COMPARISON: None. FINDINGS: Brain and ventricles are normal. No evidence of an acute process or hemorrhage. Sinuses and mastoids are normal. IMPRESSION: 1. Negative head CT. 2. Findings discussed with YARELI Salazar at [address] scans at this facility use dose modulation, iterative reconstruction, and/or weight-based dosing when appropriate to reduce radiation dose to as low as reasonably achievable.
--- NOTE | 2017-01-03 12:03 | ED MED RECONCILIATION SUMMARY ---
Patient: CARLA MARTINEZ Medication Reconciliation Report [facility] VisitID: [id number] [address] [place] [address] 55y, M Registration Date/Time: 12/09/2016 Weight: 95.2 kg Height/Length: 73 in. BMI: 27.7 ALLERGIES: [place], Xanax The patient's Home Medications are listed below: NONE. The source(s) of the original Home Medication information: patient The following Medications were given to the patient in the Emergency Department: None. The following Medications were prescribed to the patient: None.
--- NOTE | 2017-01-03 12:03 | ED MED RECONCILIATION SUMMARY ---
Patient: CARLA MARTINEZ Medication Reconciliation Report [facility] VisitID: [id number] [address] [place] [place] [address] 55y, M Registration Date/Time: 12/09/2016 Weight: 95.2 kg Height/Length: 73 in. BMI: 27.7 ALLERGIES: [place], Xanax The patient's Home Medications are listed below: NONE. The source(s) of the original Home Medication information: patient The following Medications were given to the patient in the Emergency Department: None. The following Medications were prescribed to the patient: None.
--- NOTE | 2017-01-03 12:03 | ED DISCHARGE INSTRUCTIONS ---
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 No aura. reassurance. follow up with pcp. INSTRUCTIONS Rest. No dietary restrictions. Do not smoke. No alcohol. Warnings: GENERAL WARNINGS: Return or contact your physician immediately if your condition worsens or changes unexpectedly, if not improving as expected, or if other problems arise. Follow-up: Follow up with your doctor Sunday if not well. Follow up with a neurologist in one week if not better. Reason for referral: lancinating head pain. Understanding of the discharge instructions verbalized by patient. ADDITIONAL INFORMATION Headache [Unspecified] The cause of your headache today is not clear, but it does not appear to be the sign of any serious illness. Under stress, some people tense the muscles of their shoulder, neck and scalp without knowing it. If this condition lasts long enough, a TENSION HEADACHE can occur. A MIGRAINE HEADACHE is caused by changes in blood flow to the brain. A migraine attack may be triggered by emotional stress, hormone changes during the menstrual cycle, oral contraceptives, alcohol use, certain foods containing tyramine, eye strain, weather changes, missing meals, lack of sleep or oversleeping. Other causes of headache include a viral illness with high fever, head injury with concussion, sinus, ear or throat infection, dental pain and TMJ (jaw joint) pain. More serious but less common causes of headache include stroke, brain hemorrhage, brain tumor, meningitis and encephalitis. Home Care: If you were given pain medicine for this headache, do not drive yourself home. Arrange for a ride, instead. When you get home, try to sleep. You should feel much better when you wake up. Apply heat to the back of your neck to relieve neck muscle spasm. Migraine headaches may respond best to an ice pack on the forehead or at the base of the skull. If you are having nausea or vomiting, follow a light diet until your headache is relieved. If you have a migraine type headache, use sunglasses when in the daylight or around bright indoor lighting until symptoms improve. Bright glaring light can worsen this kind of headache. Follow Up with your doctor if the headache is not better within the next 24 hours. If you have frequent headaches you should discuss a treatment plan with your primary care doctor. By being aware of the earliest signs of headache, and starting treatment right away, you may be able to stop the pain yourself. Get Prompt Medical Attention if any of the following occur: Worsening of your head pain or no improvement within 24 hours Repeated vomiting (unable to keep liquids down) Fever of 100.4F (38C) or higher, or as directed by your healthcare provider Stiff neck Extreme drowsiness, confusion or fainting Dizziness, vertigo (dizziness with spinning sensation) Weakness of an arm or leg or one side of the face Difficulty with speech or vision You have been given the following additional information: Headache, Unspecified Rest. (Electronically signed by Lacy Mcgrath PA-C 12/09/2016 22:05)
--- NOTE | 2017-01-03 12:03 | ED MAR SUMMARY ---
..... Medication Administration Record [facility] [address] [place], [place] [id number] Patient: CARLA MARTINEZ Visit ID: [id number] 55y, M Weight: 95.2 kg Height/Length: 73 in BMI: 27.7 ALLERGIES: [place], Xanax
--- NOTE | 2017-01-03 12:03 | ED MAR SUMMARY ---
..... Medication Administration Record [facility] [address] [place], [place] [id number] Patient: CARLA MARTINEZ Visit ID: [id number] 55y, M Weight: 95.2 kg Height/Length: 73 in BMI: 27.7 ALLERGIES: [place], Xanax
== END 2016-12-09 20:50 | disposition home or self-care (01) ==
LOC: ED SRH 18:36
DX: G44.039 Episodic paroxysmal hemicrania, not intractable (principal); G44.89 Other headache syndrome; F31.9 Bipolar disorder, unspecified; F41.9 Anxiety disorder, unspecified; Z88.8 Allergy status to other drugs, medicaments and biological substances